=== PATIENT | female | born 1980 | race Caucasian/White ===

== ENCOUNTER 2017-10-30 14:06 | Outpatient (CLI) | payer OTHER ==
--- NOTE | 2017-10-30 18:57 | MRI Report ---
EXAM: MRI CERVICAL SPINE WITHOUT CONTRAST EXAM DATE: 10/30/2017 02:33 PM. CLINICAL HISTORY: Cervical radiculopathy. Numbness and tingling upper extremities. COMPARISONS: Cervical spine 6 view x-ray series. TECHNIQUE: Multiplanar, multisequence T1-weighted and fluid-sensitive sequences of the cervical spine without contrast. Other: None. FINDINGS: Neurologic Structures: The visualized posterior fossa structures are unremarkable. No signal abnormal ity in the visualized spinal cord. Alignment: No scoliosis or spondylolisthesis. Bone Marrow: No gross fractures or bone lesions. No marrow edema. Interspace Levels/Facets: C1-C2: Unremarkable. C2-C3: Unremarkable. C3-C4: Mild right facet joint arthrosis. C4-C5: Negative for spinal canal stenosis or foraminal stenosis. Mild right facet joint arthrosis. C5-C6: Posterior 2 mm disk protrusion. Negative for right foraminal stenosis. Severe left foraminal s tenosis from foraminal 3 mm disk extrusion (image 12 series 801 and image 3 series 501). Mild facet j oint arthrosis. C6-C7: Unremarkable. C7-T1: Unremarkable. Musculature: Normal. No edema or fatty atrophy. Other: The paravertebral and prevertebral soft tissues are normal. IMPRESSION: 1. The spinal cord from the cervicomedullary junction to T2 is negative for signal abnormality. 2. Severe left C5-C6 foraminal stenosis from 3 mm foraminal disk extrusion. [facility] Referring Provider Line: [phone] SITE ID: [id number]
== END 2017-10-30 14:07 | disposition home or self-care (01) ==
LOC: DI 14:06
PROVIDERS: ATTEND Physician Assistant Medical
DX: M50.222 Other cervical disc displacement at C5-C6 level (principal)
CPT/HCPCS: 72141

== ENCOUNTER 2019-06-03 16:52 | Outpatient (CLI) | payer OTHER ==
[2019-06-03 17:10] LABS: BASOPHILS % (AUTO) 0.3 %; EOSINOPHILS # (AUTO) 0.1 10^3/uL (0.0-0.7); HGB - HEMOGLOBIN 12.1 g/dL (12.0-16.0); LYMPHOCYTES # (AUTO) 2.2 10^3/uL (1.5-3.5); LYMPHOCYTES % (AUTO) 30.6 %; MEAN CORPUSCULAR HEMOGLOBIN 29.4 pg (27.0-31.0); MEAN CORPUSCULAR HGB CONC 32.3 g/dL (32.0-36.0); MEAN CORPUSCULAR VOLUME 91.2 fL (81.0-99.0); MEAN PLATELET VOLUME 9.8 fL (7.9-10.8); MONOCYTES # (AUTO) 0.5 10^3/uL (0.0-1.0); MONOCYTES % (AUTO) 6.2 %; NEUTROPHILS # (AUTO) 4.5 10^3/uL (1.5-6.6); NEUTROPHILS % (AUTO) 61.5 %; PLT - PLATELET COUNT 230 10^3/uL (130-450); RED BLOOD COUNT 4.11 10^6/uL (4.20-5.40); RED CELL DISTRIBUTION WIDTH 12.4 % (12.0-15.0); WHITE BLOOD COUNT 7.3 x10^3/uL (4.8-10.8)
[2019-06-03 17:21] LABS: ALBUMIN 4.1 g/dL (3.2-5.5); ALBUMIN/GLOBULIN RATIO 1.5 (1.0-2.2); BILIRUBIN,TOTAL 0.4 mg/dL (0.2-1.0); CALCIUM 9.1 mg/dL (8.5-10.3); CREATININE 0.8 mg/dL (0.4-1.0); TOTAL PROTEIN 6.9 g/dL (6.7-8.2)
== END 2019-06-03 16:53 | disposition home or self-care (01) ==
LOC: LAB 16:52
PROVIDERS: ATTEND Physician Assistant Medical
DX: R10.11 Right upper quadrant pain (principal)
CPT/HCPCS: 36415; 80053; 83690; 85025

== ENCOUNTER 2019-07-31 08:58 | Outpatient (CLI) | payer OTHER ==
[2019-07-31] MEDS ORDERED: SINCALIDE 5 MCG VIAL ONE (10:09)
[2019-07-31] MEDS ORDERED: SINCALIDE 1.5 MCG in SODIUM CHLORIDE 0.9% 50 ML IV ONE (11:43)
--- NOTE | 2019-07-31 12:32 | Nuclear Medicine Report ---
Reason: ABND PAIN RUQ Procedure Date: 07/31/2019 Accession Number: [id number] / [id number] Procedure: NM - Hepatobiliary HIDA w/ Rx CPT Code: Final Report FULL RESULT: EXAM: HEPATOBILIARY SCAN WITH CCK/KINEVAC ADMINISTRATION EXAM DATE: 07/31/2019 11:38 AM. CLINICAL HISTORY: ABD PAIN RUQ. COMPARISON: None. TECHNIQUE: Following the intravenous administration of 5 mCi of Tc99m Mebrofenin, a hepatobiliary scan was done centered on the liver and gallbladder in multiple sequential images and projections. Following the intravenous administration of 1.5 mcg of CCK/ Kinevac over the course of approximately 60 minutes, dynamic imaging was done and the gallbladder ejection fraction was calculated. FINDINGS: Normal clearance of blood pool activity indicating grossly normal hepatocellular function. Liver size and shape grossly normal. Appearance of tracer in the biliary tree as early as 5 minutes, within normal limits. Appearance of tracer in the gallbladder as early as 15 minutes, within normal limits, with good progression of filling throughout the remainder of the initial hour. Appearance of tracer in the small bowel following CCK administration. Following CCK administration, gallbladder ejection fraction is calculated to be 83%, within the normal range (> 38%). There is evidence of moderate enterogastric bile reflux following CCK administration. IMPRESSION: 1. No scintigraphic evidence of acute cholecystitis. 2. Patent common bile duct. 3. Gallbladder ejection fraction is within the normal range. 4. There is evidence of enterogastric bile reflux. 5. Mildly delayed biliary to bowel transit. This is a nonspecific finding that can be seen in a subset of normal patients, however differential considerations include biliary dyskinesia and chronic cholecystitis, among others. [facility]
== END 2019-07-31 08:59 | disposition home or self-care (01) ==
LOC: DI 08:58
PROVIDERS: ATTEND Physician Assistant Medical
DX: K31.89 Other diseases of stomach and duodenum (principal); R10.11 Right upper quadrant pain
CPT/HCPCS: 78227; J7040

== ENCOUNTER 2020-03-30 14:07 | Outpatient (CLI) | payer OTHER ==
[2020-03-30 18:20] LABS: BASOPHILS % (AUTO) 0.3 %; EOSINOPHILS # (AUTO) 0.1 10^3/uL (0.0-0.7); EOSINOPHILS % (AUTO) 1.1 %; HGB - HEMOGLOBIN 12.2 g/dL (12.0-16.0); LYMPHOCYTES # (AUTO) 2.5 10^3/uL (1.5-3.5); LYMPHOCYTES % (AUTO) 33.1 %; MEAN CORPUSCULAR HEMOGLOBIN 30.1 pg (27.0-31.0); MEAN CORPUSCULAR HGB CONC 32.7 g/dL (32.0-36.0); MEAN CORPUSCULAR VOLUME 92.1 fL (81.0-99.0); MEAN PLATELET VOLUME 10.8 fL (7.9-10.8); MONOCYTES # (AUTO) 0.4 10^3/uL (0.0-1.0); MONOCYTES % (AUTO) 5.8 %; NEUTROPHILS # (AUTO) 4.5 10^3/uL (1.5-6.6); NEUTROPHILS % (AUTO) 59.3 %; PLT - PLATELET COUNT 238 10^3/uL (130-450); RED BLOOD COUNT 4.05 10^6/uL (4.20-5.40); RED CELL DISTRIBUTION WIDTH 12.2 % (12.0-15.0); WHITE BLOOD COUNT 7.5 x10^3/uL (4.8-10.8)
[2020-03-30 18:36] LABS: ALBUMIN 4.5 g/dL (3.2-5.5); ALBUMIN/GLOBULIN RATIO 1.9 (1.0-2.2); BILIRUBIN,TOTAL 0.6 mg/dL (0.2-1.0); CALCIUM 9.2 mg/dL (8.5-10.3); CREATININE 0.6 mg/dL (0.4-1.0); MAGNESIUM 1.9 mg/dL (1.7-2.8); PHOSPHORUS 3.8 mg/dL (2.5-4.6); TOTAL PROTEIN 6.9 g/dL (6.7-8.2)
== END 2020-03-30 23:59 | disposition home or self-care (01) ==
LOC: LAB.WCP 14:07
PROVIDERS: ATTEND Physician Assistant Medical
DX: R55 Syncope and collapse (principal)
CPT/HCPCS: 36415; 80053; 83735; 84100; 84443; 85025

== ENCOUNTER 2020-05-21 13:12 | Outpatient (CLI) | payer OTHER | END 2020-05-21 13:13 | disposition home or self-care (01) | LOC: DI 13:12 | PROVIDERS: ATTEND Physician Assistant Medical | DX: R55 Syncope and collapse (principal) | CPT/HCPCS: 93306 ==